=== PATIENT | female | born 1975 | race Caucasian/White ===

== ENCOUNTER → 2019-05-05 | Outpatient (CLI) | payer SELFPAY | END | disposition home or self-care (01) | LOC: RESCLI 10:40 | DX: H10.33 Unspecified acute conjunctivitis, bilateral (principal); J45.909 Unspecified asthma, uncomplicated; Z79.899 Other long term (current) drug therapy ==

== ENCOUNTER 2019-08-27 01:29 | Inpatient (IN) | payer OTHER ==
[~2019-08-27] VITALS: Ht 160 cm; Wt 115.3 kg
[2019-08-27] VITALS (7 sets, daily range): BP systolic 113–150; BP diastolic 61–85
[2019-08-27 02:03] LABS: BASO # 0.1 10*3/uL (0.0-0.1); BASO % 0.4 % (0.0-1.0); HEMATOCRIT 38.1 % (37.0-47.0); HEMOGLOBIN 12.3 g/dl (12.0-16.0); LYMPH # 1.3 10*3/uL (1.3-4.4); LYMPH % 10.3 % (27.0-41.0); MEAN CELL VOLUME 90.7 fl (81.0-99.0); MEAN CORPUSCULAR HGB 29.3 pg (27.0-31.0); MEAN CORPUSCULAR HGB CONC 32.3 g/dl (33.0-37.0); MEAN PLATELET VOLUME 10.6 fl (9.6-12.3); MONO # 0.8 10*3/uL (0.1-1.0); MONO % 5.8 % (3.0-9.0); NEUT # 10.8 10*3/uL (2.3-7.9); NEUT % 83.2 % (47.0-73.0); PLATELET COUNT AUTOMATED 214 10*3/uL (130-400); RED CELL DISTRI WIDTH 12.9 % (0-14.5)
[2019-08-27 02:17] LABS: ALBUMIN 3.7 gm/dl (3.1-4.5); ALKALINE PHOSPHATASE 59 U/L (45-117); BUN 16 mg/dl (7-24); CHLORIDE 109 mmol/L (98-107); CREATININE 0.74 mg/dL (0.55-1.02); POTASSIUM 3.6 mmol/L (3.5-5.1); SGOT/AST 13 IU/L (3-35); SGPT/ALT 18 U/L (12-78); SODIUM 139 mmol/L (136-145); TOTAL PROTEIN 7.4 gm/dL (6.4-8.2)
--- NOTE | 2019-08-27 03:00 | NUR ---
PATIENT ORDERED IM EPI FOR ANAPHYLAXIS REACTION. PATIENT AT THE TIME WAS IN NO DISTRESS, A/0X3, AND ONLY COMPLAINT WAS MILD THROAT SWELLING. THE ED DOC ORDERED THE IM INJECTION OF EPI 0.3MG AND THE PATIENT RECEIVED EPI IV. PATIENT HAS MODERATE REASCTION TO THE MEDICATION. ED DOC WAS NOTIFIED. THE PATIENT WAS PLACED ON PLUMBER SUPERVISOR. INTIAL RATE WAS NSR IN THE 70'S. NO NEW ORDERS WHERE NEEDED FOR INTERVENTION. PATIENTS BP NEVER CHANGED. PATIENT RESP INCREASED FORM 16 TO 28 BUT DROPPED BACK TO WNL. PATIENTS PULSE OX REMAINED THE SAME
--- NOTE | 2019-08-27 03:02 | NUR ---
PATIENT IS RESTING IN BED WITH NO COMPLAINTS AT THIS TIME.
--- NOTE | 2019-08-27 04:00 | NUR ---
A 44 YEAR OLD FEMALE PATIENT, admitted to [facility], under the services of HELEN Bentley DO with a diagnosis of ANAPHYLAXIS Chief complaint is C/O SWOLLEN THROAT, ITCHY AND ALLERGY SYMPTOMS. RUNNY NOSE AND ALLERGY SYMPTOMS. FELT SIMILAR TO WHEN SE HAD ANAPHYLAXIS IN PAST Patient arrived via CART WITH RN from ER. Monitor applied. Initial assessment completed. Vital signs taken and recorded. See assessment for past medical history, medications and allergies. Patient and/or family oriented to unit. [facility] visitation policy reviewed. Clothing/patient valuable form completed. HOWARD CARVALHO
[2019-08-27] MEDS ORDERED: BREO ELLIPTA 21 EACH INH (04:33)
[2019-08-27] MEDS ORDERED: LEVOTHYROXINE50 MCG PO (04:33)
[2019-08-27] MEDS ORDERED: AIMOVIG AU70 MG/1 ML SQ (04:33)
[2019-08-27] MEDS ORDERED: FASENRA30 MG/1 ML SQ (04:37)
--- NOTE | 2019-08-27 05:02 | NUR ---
COLLECTED AND SENT SPECIMEN FOR ACTIVE SURVELLIANCE MRSA.
[2019-08-27 06:46] LABS: HEMATOCRIT 38.9 % (37.0-47.0); HEMOGLOBIN 12.5 g/dl (12.0-16.0); MEAN CELL VOLUME 90.5 fl (81.0-99.0); MEAN CORPUSCULAR HGB 29.1 pg (27.0-31.0); MEAN CORPUSCULAR HGB CONC 32.1 g/dl (33.0-37.0); MEAN PLATELET VOLUME 11.3 fl (9.6-12.3); PLATELET COUNT AUTOMATED 217 10*3/uL (130-400); RED CELL DISTRI WIDTH 12.9 % (0-14.5); WHITE BLOOD COUNT 14.2 10*3/uL (4.8-10.8)
[2019-08-27 07:02] LABS: ALBUMIN 3.8 gm/dl (3.1-4.5); ALKALINE PHOSPHATASE 58 U/L (45-117); BUN 12 mg/dl (7-24); CHLORIDE 111 mmol/L (98-107); CREATININE 0.86 mg/dL (0.55-1.02); PHOSPHOROUS 2.2 mg/dL (2.5-4.9); POTASSIUM 3.9 mmol/L (3.5-5.1); SGOT/AST 12 IU/L (3-35); SGPT/ALT 20 U/L (12-78); SODIUM 139 mmol/L (136-145); TOTAL PROTEIN 7.7 gm/dL (6.4-8.2)
[2019-08-27 07:09] LABS: THYROID STIM HORMONE (HS) 0.614 uIU/ml (0.358-4.75)
--- NOTE | 2019-08-27 08:00 | NUR ---
RESTING IN BED. VITALS STABLE. PULSE OX 97% ON ROOM AIR. COMPLAINS OF THROAT TIGHTNESS. NO OTHER COMPLAINTS VOICED.
[2019-08-27 09:16] LABS: TOTAL CELLS COUNTED 100 #CELLS
[2019-08-27 09:17] LABS: PLATELET SUFFICIENCY NORMAL (NORMAL); TOXIC GRANULATION SLIGHT
--- NOTE | 2019-08-27 11:27 | NUR ---
MEDICATED WITH ZOFRAN 4MG IV FOR COMPLAINTS OF HEAD POUNDING AND NAUSEA
--- NOTE | 2019-08-27 11:49 | NUR ---
VOICES THAT NAUSEA IS GONE BUT MY BODY FEELS "THIS WAY WHEN REBOUND OCCURS." SHE VOICES TINGLING IN HER ARMS AND STATES "MY SKIN FEELS LIKE IT IS ON FIRE."
[2019-08-27] MEDS ORDERED: PREDNISONE10 MG PO (15:28)
[2019-08-27] MEDS ORDERED: BENADRYL ALLERG25 M5 PO (15:28)
--- NOTE | 2019-08-27 15:44 | NUR ---
Discharge instructions reviewed with patient/family. Patient receptive and verbalizes understanding. Follow-up care arranged. Written instructions given to patient/family. SCRIPTS FOR PO PREDNISONE AND BENADRYL SENT TO PHARMACY. JENNIE ROME
== END 2019-08-27 15:44 | disposition home or self-care (01) | DRG 916 ==
LOC: ED 01:29 → EDHOLD 03:10 → ICCU 03:10
PROVIDERS: Emergency Medicine; Student in an Organized Health Care Education/Training Program; ADMIT Internal Medicine
DX: T78.2XXA Anaphylactic shock, unspecified, initial encounter (principal); R65.10 Systemic inflammatory response syndrome (SIRS) of non-infectious origin without acute organ dysfunction; Z68.42 Body mass index [BMI] 45.0-49.9, adult; E66.01 Morbid (severe) obesity due to excess calories; G43.909 Migraine, unspecified, not intractable, without status migrainosus; E03.9 Hypothyroidism, unspecified; R73.9 Hyperglycemia, unspecified; E87.8 Other disorders of electrolyte and fluid balance, not elsewhere classified; J45.909 Unspecified asthma, uncomplicated; Z91.09 Other allergy status, other than to drugs and biological substances; Z88.8 Allergy status to other drugs, medicaments and biological substances; Z90.49 Acquired absence of other specified parts of digestive tract; Z98.51 Tubal ligation status; Z81.8 Family history of other mental and behavioral disorders; Z83.2 Family history of diseases of the blood and blood-forming organs and certain disorders involving the immune mechanism; Z79.899 Other long term (current) drug therapy